=== PATIENT | female | born 1975 | race African-American/Black ===

== ENCOUNTER 2017-07-31 22:52 | Emergency (ER) | payer MEDICAID, OTHER ==
[~2017-07-31] VITALS: Ht 175.3 cm; Wt 91.0 kg
[2017-08-01] VITALS: BP 160/112
== END 2017-08-01 03:00 | disposition left against medical advice (07) ==
LOC: ER 22:52
DX: R10.9 Unspecified abdominal pain (principal); Z53.21 Procedure and treatment not carried out due to patient leaving prior to being seen by health care provider
CPT/HCPCS: 81025

== ENCOUNTER 2021-02-03 15:23 | Emergency (ER) | payer MEDICAID, OTHER ==
[~2021-02-03] VITALS: Ht 175.3 cm; Wt 91.0 kg
[2021-02-03] MEDS ORDERED: MAGNESIUM/ALUMINUM HYDROXIDE/SIMETHICONE 30ML UDC PO STA (16:07)
[2021-02-03] MEDS ORDERED: FAMOTIDINE 20MG/2ML VIAL IV STA (16:07)
[2021-02-03] MEDS ORDERED: ONDANSETRON HCL 4MG/2ML INJ IV STA (16:07)
[2021-02-03] MEDS ORDERED: SODIUM CHLORIDE 0.9% 1,000 ML IV ONE (16:15)
[2021-02-03 16:41] LABS: BASOPHILS % 0.7 % (0.0-2.0); EOSINOPHILS % 1.9 % (0.0-5.0); HEMATOCRIT. 41.9 % (36.0-48.0); HEMOGLOBIN. 14.1 g/dL (12.0-16.0); LYMPHOCYTES % 35.2 % (20.0-50.0); MEAN CORPUSCULAR HEMOGLOBIN 27.7 pg (28.0-32.0); MEAN CORPUSCULAR VOLUME 82.3 fL (81.0-99.0); MEAN PLATELET VOLUME 8.5 fl (7.4-10.4); MONOCYTES % 7.3 % (2.0-8.0); NEUTROPHILS % 54.9 % (40.0-76.0); PLATELET 245 x1000/uL (130-400); RED BLOOD CELL COUNT 5.09 mill/uL (4.2-5.4); RED CELL DISTRIBUTION WIDTH 13.1 % (11.6-14.6)
[2021-02-03 16:46] LABS: CHLORIDE 108 mEq/L (98-107)
[2021-02-03 16:49] LABS: HCG SCREEN NEGATIVE
[2021-02-03 16:50] LABS: ETHANOL BLOOD < 10 mg/dL; PROTHROMBIN TIME 10.3 sec (9.6-11.0)
[2021-02-03] MEDS ORDERED: ONDA4TAB5 MT (16:54)
[2021-02-03] MEDS ORDERED: FAMO-135 MT (16:54)
[2021-02-03] MEDS ORDERED: DICY10CA88 MT (16:54)
[2021-02-03] MEDS ORDERED: TOPUD MT (16:54)
[2021-02-03 17:00] VITALS: BP 134/65
[2021-02-03] MEDS ORDERED: DICYCLOMINE HCL 10MG CAPSULE PO NR (17:00)
[2021-02-03 17:36] LABS: CLARITY URINE CLEAR (CLEAR); COLOR URINE YELLOW (YELLOW); KETONES URINE NEGATIVE (NEGATIVE); LEUKOCYTE ESTERASE URINE NEGATIVE (NEGATIVE); NITRITE URINE NEGATIVE (NEGATIVE); OCCULT BLOOD URINE NEGATIVE (NEGATIVE); PROTEIN URINE NEGATIVE (NEGATIVE); SPECIFIC GRAVITY URINE 1.005 (1.005-1.030); UROBILINOGEN URINE 0.2 E.U./dL (0.2-1.0)
[2021-02-03 17:49] LABS: *BARBITURATES SCREEN URINE NEGATIVE (NEGATIVE); *BENZODIAZEPINES SCREEN URINE NEGATIVE (NEGATIVE); *COCAINE SCREEN URINE NEGATIVE (NEGATIVE); METHADONE URINE SCREEN NEGATIVE (NEGATIVE); OPIATES URINE SCREEN NEGATIVE (NEGATIVE); PHENCYCLIDINE URINE SCREEN NEGATIVE (NEGATIVE)
[2021-02-03 17:50] LABS: CANNABINOID URINE SCREEN NEGATIVE (NEGATIVE)
[2021-02-03 17:51] LABS: *AMPHETAMINES SCREEN URINE PRESUMTIVE POSITIVE (NEGATIVE)
== END 2021-02-03 18:09 | disposition home or self-care (01) ==
LOC: ER 15:23
DX: R19.7 Diarrhea, unspecified (principal); R10.9 Unspecified abdominal pain; I10 Essential (primary) hypertension
CPT/HCPCS: 36415; 80053; 80305; 80320; 81003; 83690; 84703; 85025; 85610; 96360; 99283; J7030; G0480

== ENCOUNTER 2021-03-17 21:38 | Emergency (ER) | payer MEDICAID, OTHER ==
[~2021-03-17] VITALS: Ht 175.3 cm; Wt 91.4 kg
[~2021-03-17 21:38] MED LIST: DICY10CA88 MT; FAMO-135 MT; ONDA4TAB5 MT; TOPUD MT
[2021-03-17 21:59] VITALS: BP 143/96
[2021-03-17] MEDS ORDERED: TRIMO EACHEYE (23:38)
== END 2021-03-17 23:50 | disposition home or self-care (01) ==
LOC: ER 21:38
DX: H10.9 Unspecified conjunctivitis (principal); I10 Essential (primary) hypertension; Z90.49 Acquired absence of other specified parts of digestive tract
CPT/HCPCS: 81025; 99283

== ENCOUNTER 2021-05-20 07:16 | Emergency (ER) | payer MEDICAID ==
[~2021-05-20] VITALS: Ht 175.3 cm; Wt 91.0 kg
[~2021-05-20 07:16] MED LIST changes: +TRIMO EACHEYE
[2021-05-20] MEDS ORDERED: IBUPROFEN 600MG TABLET PO ONE (08:00)
[2021-05-20 08:11] LABS: CLARITY URINE CLEAR (CLEAR); COLOR URINE YELLOW (YELLOW); KETONES URINE TRACE (NEGATIVE); LEUKOCYTE ESTERASE URINE NEGATIVE (NEGATIVE); NITRITE URINE NEGATIVE (NEGATIVE); OCCULT BLOOD URINE NEGATIVE (NEGATIVE); PROTEIN URINE NEGATIVE (NEGATIVE)
[2021-05-20] MEDS ORDERED: MELO15TA13 MT (09:03)
[2021-05-20] MEDS ORDERED: KETOROLAC 60MG/2ML VIAL IM ONE (09:15)
[2021-05-20 09:21] VITALS: BP 155/98
== END 2021-05-20 09:22 | disposition home or self-care (01) ==
LOC: ER 07:16
DX: B34.9 Viral infection, unspecified (principal); I10 Essential (primary) hypertension; Z87.19 Personal history of other diseases of the digestive system; Z90.49 Acquired absence of other specified parts of digestive tract; Z79.899 Other long term (current) drug therapy
CPT/HCPCS: 81003; 81025; 99283

== ENCOUNTER 2021-11-04 00:30 | Emergency (ER) | payer MEDICAID, OTHER ==
[~2021-11-04] VITALS: Ht 175.3 cm; Wt 95.0 kg
[~2021-11-04 00:30] MED LIST changes: +MELO15TA13 MT
[2021-11-04] MEDS ORDERED: CIPR-263 MT (04:58)
[2021-11-04 05:27] VITALS: BP 135/79
[2021-11-04 06:55] LABS: CLARITY URINE CLEAR (CLEAR); COLOR URINE YELLOW (YELLOW); KETONES URINE TRACE (NEGATIVE); PROTEIN URINE NEGATIVE (NEGATIVE); SPECIFIC GRAVITY URINE 1.033 (1.005-1.030)
[2021-11-04 06:56] LABS: LEUKOCYTE ESTERASE URINE NEGATIVE (NEGATIVE); NITRITE URINE NEGATIVE (NEGATIVE); OCCULT BLOOD URINE NEGATIVE (NEGATIVE)
[2021-11-04 06:58] LABS: UCG SCREEN NEGATIVE
== END 2021-11-04 05:29 | disposition home or self-care (01) ==
LOC: ER 00:30
DX: R30.0 Dysuria (principal); M54.50 Low back pain, unspecified; I10 Essential (primary) hypertension; Z90.49 Acquired absence of other specified parts of digestive tract
CPT/HCPCS: 81003; 81025; 99283